=== PATIENT | female | born 1995 | race Caucasian/White ===

== ENCOUNTER 2018-07-29 11:24 | Outpatient (CLI) | payer OTHER | END 2018-07-29 23:59 | disposition home or self-care (01) | LOC: LAB.R 11:24 | PROVIDERS: ATTEND Physician Assistant Medical | DX: J02.0 Streptococcal pharyngitis (principal) | CPT/HCPCS: 87070 ==

== ENCOUNTER 2020-06-28 15:41 | Outpatient (CLI) | payer OTHER ==
--- NOTE | 2020-06-28 18:10 | Ultrasound Report ---
PROCEDURE: OB Biophysical Profile INDICATIONS: POSTDATES OUTSIDE/PRIOR DATING DATA: Last menstrual period (LMP): 08/27/2019. LMP-based estimated date of delivery (PATEL): 06/22/2020. First dating scan (date and location): 02/05/2020. Estimated date of delivery (PATEL) from first dating scan: 06/22/2020. TECHNIQUE: Real-time scanning was performed of the fetus, with image documentation and biometric karthik surements. Biophysical profile was also obtained. Endovaginal scanning: Not performed COMPARISON: 02/05/2020, 03/14/2020 FINDINGS: General: A single living intrauterine gestation is present. Presentation: Cephalic Placenta: Placental position is anterior, without previa. Amniotic fluid index: 12.3 cm, normal for gestational age. Largest pocket is 6.0 cm. heart rate: 131 beats per minute. Maternal cervical canal: Not seen biometrics: Biparietal diameter: 9.66 cm, 39 weeks, 3 days Head circumference: 35.4 cm, 41 weeks, 3 days Abdominal circumference: 36.2 cm, 40 weeks, 1 day Femur length: 7.7 cm, 39 weeks, 3 days Estimated gestational age from initial scan: 40 weeks, 6 days. Composite gestational age from present scan: 40 weeks, 1 day Estimated weight and percentile: 3972 g, 67th percentile Measurement variability in biometric dating: +/- 10 days from 12-20 weeks gestation, +/- 2 weeks from 20-30 weeks gestation, +/- 3 weeks at 30 weeks gestation or later. Biophysical profile: Tone: 2 points. Movement: 2 points. Respiration: 2 points. Largest pocket of fluid: 2 points. Total score 8 out of 8 Umbilical artery Doppler: 2.08, 2.24, 2.21, normal. IMPRESSION: 1. Single living intrauterine with a composite gestational age within 5 days of the initial ly assigned gestational age. 2. Estimated weight at the 67th percentile. 3. Normal biophysical profile score. 4. Normal cord Doppler ratios. Reviewed by: Aurora Lynne MD on 06/28/2020 5:09 PM [facility] Approved by: Aurora Lynne MD on 06/28/2020 5:09 PM [facility] Station ID: [id number]
== END 2020-06-28 15:42 | disposition home or self-care (01) ==
LOC: DI 15:41
PROVIDERS: ATTEND Midwife
DX: O48.0 Post-term pregnancy (principal); Z3A.40 40 weeks gestation of pregnancy

== ENCOUNTER 2022-10-01 19:34 | Outpatient (CLI) | payer OTHER ==
--- NOTE | 2022-10-01 22:18 | Ultrasound Report ---
PROCEDURE: OB Biophysical Profile INDICATIONS: POST DATES OUTSIDE/PRIOR DATING DATA: Last menstrual period (LMP): 12/16/2021. LMP-based estimated date of delivery (PATEL): 09/22/2022. First dating scan (date and location): 06/01/2022. Estimated date of delivery (PATEL) from first dating scan: 09/22/2022. The below data below was generated using the working PATEL of 09/22/2022 TECHNIQUE: Real-time scanning was performed of the fetus, with image documentation and biometric karthik surements. Biophysical profile was also obtained. COMPARISON: Report from prior outside ultrasound dated 06/01/2022. FINDINGS: General: A single living intrauterine gestation is present. Presentation: Cephalic Placenta: Placental position is anterior, without previa. Amniotic fluid index: 15.2 cm, within normal limits for gestational age. Largest fluid pocket: 6.3 cm heart rate: 123 beats per minute. Maternal cervical canal: Not imaged. Estimated gestational age from initial scan: 41 weeks 2 days A nuchal cord was noted. Biophysical profile: Tone: 2 points. Movement: 2 points. Respiration: 2 points. Largest pocket of fluid: 2 points. Umbilical artery Doppler: Systolic/diastolic ratios of 2.2, 2.7, and 2.7. IMPRESSION: 1. Single living intrauterine demonstrated in cephalic presentation with normal ROBINSON. 2. Normal biophysical profile score of 8/8. 3. Systolic/diastolic ratios of the umbilical artery within normal limits. 4. Nuchal cord noted. Reviewed by: Jose Faria MD on 10/01/2022 10:17 PM PDT Approved by: Jose Faria MD on 10/01/2022 10:17 PM PDT Station ID: [id number]
== END 2022-10-01 19:35 | disposition home or self-care (01) ==
LOC: DI 19:34
PROVIDERS: ATTEND Midwife
DX: Z34.03 Encounter for supervision of normal first pregnancy, third trimester (principal)